=== PATIENT | female | born 1995 | race Caucasian/White ===

== ENCOUNTER 2016-03-06 14:07 | Emergency (ER) | payer OTHER ==
[~2016-03-06] VITALS: Wt 72.5 kg
[~2016-03-06 14:07] MED LIST: ACET-2158 PO; IBUP-1542 PO; PREN-39 PO
[2016-03-06 14:12] VITALS: Wt 72.5 kg
[2016-03-06] MEDS ORDERED: IBUP-1542 PO (16:11)
[2016-03-06] MEDS ORDERED: AMO500 PO (16:11)
[2016-03-06] MEDS ORDERED: D-ME473S18 PO (16:11)
--- NOTE | 2016-03-06 16:15 | ERD ---
ER Documentation Chief Complaint Date/Time DATE: 03/06/16 TIME: 16:13 Chief Complaint COUGH AND SORE THROAT WITH INTERMITTENT FEVERS HPI This 20-year-old female presents with cough and sore throat and intermittent fevers worsening over the last 3 days. She had some mild URI symptoms last week but feels they are worsening. She denies any vomiting, abdominal pain, diarrhea. She has decreased hearing and possible ear pain worse on the left. ROS All systems reviewed and are negative except as per history of present illness. Medications Home Meds Active Scripts Ibuprofen* (Motrin*) 600 Mg Tab, 600 MG PO Q6, #15 TAB Prov:DANNY JOSEPH MD 03/06/16 Dextromethorphan Hb-Promethazine Hcl (Promethazine DM Syrup) 473 Ml Syrup, 5 ML PO Q6H Y for COUGH, #4 OZ Prov:DANNY JOSEPH MD 03/06/16 Amoxicillin* (Amoxicillin*) 500 Mg Cap, 500 MG PO TID for 10 Days, CAP Prov:DANYN JOSEPH MD 03/06/16 Ibuprofen* (Motrin*) 600 Mg Tab, 600 MG PO Q6, #30 TAB 7 Refills Prov:SALTY ALVARADO MD 12/05/13 Acetaminophen (TYLENOL 325 MG TAB) 325 Mg Tab, 650 MG PO Q4H Y for PAIN LEVEL 1- 5 for 7 Days, TAB Prov:SALTY ALVARADO MD 12/05/13 Reported Medications Vits W-Ca,Fe,Fa(<1MG) ( Vitamins) 1 Tab Tablet, 1 TAB PO DAILY for 7 Days 11/29/13 Allergies Allergies: Coded Allergies: No Known Allergy (Unverified , 09/16/13) PMhx/Soc History of Surgery: No Anesthesia Reaction: No Hx Neurological Disorder: No Hx Respiratory Disorders: No Hx Cardiac Disorders: No Hx Psychiatric Problems: No Hx Miscellaneous Medical Probl: Yes (FT) Hx Alcohol Use: No Hx Substance Use: No Hx Tobacco Use: No Physical Exam Vitals Vital Signs Date Time Temp Pulse Resp B/P Pulse Ox O2 Delivery O2 Flow Rate FiO2 03/06/16 14:12 100.6 126 24 120/84 98 Physical Exam Const: [] Alert, ahz-vip-qcummsahd. Head: Atraumatic Eyes: Normal Conjunctiva ENT: Normal External Ears, Nose and Mouth. Left TM is red with decreased light reflex. There is some erythema in the posterior oropharynx. 3+ tonsils. Airways patent and uvula midline. Neck: Full range of motion..~ No meningismus. Resp: Clear to auscultation bilaterally Cardio: Regular rate and rhythm, no murmurs Abd: Soft, non tender, non distended. Normal bowel sounds Skin: No petechiae or rashes Back: No midline or flank tenderness Ext: No cyanosis, or edema Neur: Awake and alert Psych: Normal Mood and Affect Procedures/MDM Patient presents with URI symptoms and signs of otitis media. She will treated with amoxicillin, promethazine and ibuprofen. The patient was stable with no new complaints during the ER course. Clinically, there is no current evidence to suggest meningitis, sepsis, acute abdomen, pneumonia, acute coronary syndrome , pulmonary embolism, or any other emergent condition appearing to require further evaluation or hospitalization. The patient should certainly return for any new or worsening symptoms per the aftercare instructions. They should otherwise follow-up with her primary care doctor for reevaluation this week. Departure Diagnosis: Primary Impression: URI, acute Condition: Stable Patient Instructions: Fever Control (Adult), Otitis Media, Abx Tx (Adult) Additional Instructions: Recheck for new or worsening symptoms with primary care doctor. DANNY JOSEPH MD Mar 06, 2016 16:14
== END 2016-03-06 16:28 | disposition home or self-care (01) ==
LOC: FTE 14:07
DX: J06.9 Acute upper respiratory infection, unspecified (principal)
CPT/HCPCS: 99284

== ENCOUNTER 2016-06-18 13:50 | Emergency (ER) | payer OTHER ==
[~2016-06-18] VITALS: Ht 165.1 cm; Wt 82.0 kg
[~2016-06-18 13:50] MED LIST changes: +AMO500 PO; +D-ME473S18 PO
[2016-06-18 13:59] VITALS: Ht 165.1 cm; Wt 82.0 kg
[2016-06-18 14:48] LABS: URINE BLOOD (Dip) POC 1+ (NEGATIVE)
[2016-06-18] MEDS ORDERED: IBUP-1542 PO (15:07)
[2016-06-18] MEDS ORDERED: CEPH-443 PO (15:07)
--- NOTE | 2016-06-18 15:18 | ERD ---
ER Documentation Chief Complaint Date/Time DATE: 06/18/16 TIME: 15:14 Chief Complaint frequent and painful urination started today HPI This 21-year-old female who presents to the emergency department today complaining of urgency with urination. Patient states that she had some burning. Denies any fevers or chills, nausea vomiting, back pain. States that she used Monistat earlier. Denied any yeast or vaginal discharge. States she has 1 sexual partner. Denies any vaginal bleeding. ROS All systems reviewed and are negative except as per history of present illness. Medications Home Meds Active Scripts Ibuprofen* (Motrin*) 600 Mg Tab, 600 MG PO Q6, #30 TAB Prov:EVE HO PA-C 06/18/16 Cephalexin* (Keflex*) 500 Mg Capsule, 500 MG PO QID for 7 Days, CAP Prov:EVE HO PA-C 06/18/16 Ibuprofen* (Motrin*) 600 Mg Tab, 600 MG PO Q6, #15 TAB Prov:DANNY JOSEPH MD 03/06/16 Dextromethorphan Hb-Promethazine Hcl (Promethazine DM Syrup) 473 Ml Syrup, 5 ML PO Q6H Y for COUGH, #4 OZ Prov:DANNY JOSEPH MD 03/06/16 Amoxicillin* (Amoxicillin*) 500 Mg Cap, 500 MG PO TID for 10 Days, CAP Prov:DANNY JOSEPH MD 03/06/16 Ibuprofen* (Motrin*) 600 Mg Tab, 600 MG PO Q6, #30 TAB 7 Refills Prov:SALTY ALVARADO MD 12/05/13 Acetaminophen (TYLENOL 325 MG TAB) 325 Mg Tab, 650 MG PO Q4H Y for PAIN LEVEL 1- 5 for 7 Days, TAB Prov:SALTY ALVARADO MD 12/05/13 Reported Medications Vits W-Ca,Fe,Fa(<1MG) ( Vitamins) 1 Tab Tablet, 1 TAB PO DAILY for 7 Days 11/29/13 Allergies Allergies: Coded Allergies: No Known Allergy (Unverified , 09/16/13) PMhx/Soc History of Surgery: No Anesthesia Reaction: No Hx Neurological Disorder: No Hx Respiratory Disorders: No Hx Cardiac Disorders: No Hx Psychiatric Problems: No Hx Miscellaneous Medical Probl: Yes (FT) Hx Alcohol Use: No Hx Substance Use: No Hx Tobacco Use: No Physical Exam Vitals Vital Signs Date Time Temp Pulse Resp B/P Pulse Ox O2 Delivery O2 Flow Rate FiO2 06/18/16 13:59 98.2 86 18 110/69 96 Physical Exam Const: No acute distress Head: Atraumatic Eyes: Normal Conjunctiva ENT: Normal External Ears, Nose and Mouth. Neck: Full range of motion..~ No meningismus. Resp: Clear to auscultation bilaterally Cardio: Regular rate and rhythm, no murmurs Abd: Soft, non tender, non distended. Normal bowel sounds Skin: No petechiae or rashes Back: No midline or flank tenderness. No CVA tenderness. Neur: Awake and alert Psych: Normal Mood and Affect Results 24 hrs Laboratory Tests Test 06/18/16 14:49 Bedside Urine pH (LAB) 5.5 Bedside Urine Protein (LAB) Negative Bedside Urine Glucose (UA) Negative Bedside Urine Ketones (LAB) Negative Bedside Urine Blood 1+ Bedside Urine Nitrite (LAB) Negative Bedside Urine Leukocyte Esterase (L 1+ Procedures/MDM This 21-year-old female who presents the emergency department today complaining of pain and urgency with urination. I did obtain a UA and urine test UA shows 1+ leukocyte esterase and 1+ blood. test is negative Patient symptoms at this time is consistent with urinary tract infection. Patient was given a prescription for Keflex and Motrin. Patient is afebrile and otherwise well-appearing. She has no CVA tenderness. Low suspicion for pyelonephritis or nephrolithiasis. She has no abdominal pain on physical exam. Low suspicion for acute surgical abdomen. At this time the patient is stable for discharge and outpatient management. Patient should follow up with their PCP in the next 1-2 days. They may return to the emergency department sooner for any persistent or worsening of symptoms. Patient understood and agreed with the plan. Departure Diagnosis: Primary Impression: UTI (urinary tract infection) Urinary tract infection type: site unspecified Hematuria presence: with hematuria Qualified Code: N39.0 - Urinary tract infection with hematuria, site unspecified Condition: Fair Patient Instructions: Understanding Urinary Tract Infections (UTIs) Additional Instructions: Call your primary care doctor TOMORROW for an appointment during the next 1-2 days.See the doctor sooner or return here if your condition worsens before your appointment time. Take antibiotics as prescribed Take Tylenol or Motrin for pain EVE HO PA-C June 18, 2016 15:18
== END 2016-06-18 16:01 | disposition home or self-care (01) ==
LOC: FTE 13:50
DX: N39.0 Urinary tract infection, site not specified (principal)
CPT/HCPCS: 81003; Z7502; 99283

== ENCOUNTER 2017-01-10 04:39 | Emergency (ER) | payer OTHER ==
[~2017-01-10] VITALS: Ht 165.1 cm; Wt 89.5 kg
[~2017-01-10 04:39] MED LIST changes: -AMO500 PO; +AMOX500C2 PO; +CEPH-443 PO
[2017-01-10 04:42] VITALS: Ht 165.1 cm; Wt 89.5 kg
[2017-01-10] MEDS ORDERED: CETI10CA PO (05:14)
[2017-01-10] MEDS ORDERED: IBUP-1542 PO (05:14)
[2017-01-10] MEDS ORDERED: FIORICET PO (05:14)
[2017-01-10] MEDS ORDERED: GUAI120S26 PO (05:14)
[2017-01-10] MEDS ORDERED: IBUPROFEN 600 MG TAB PO ONE (05:30)
[2017-01-10] MEDS ORDERED: ACET/BUTAL/CAFF/CODEINE CAP PO ONE (05:30)
[2017-01-10 05:38] VITALS: PULSE 108
--- NOTE | 2017-01-24 06:01 | ERD ---
ER Documentation Chief Complaint Chief Complaint PT reports LAUREN for 2 days with sensitivity to light HPI 21-year-old female presents here to emergency department for complaints of headache for 2 days. Patient's complaint of headache, throbbing pain, succession scale, not better or worse with anything. Patient also complaining of URI symptoms, runny nose nasal congestion and cough. Patient denies any fever or chills. Patient denies any head injury. Patient denies any nausea or vomiting. ROS All systems reviewed and are negative except as per history of present illness. Medications Home Meds Active Scripts Acetamin/Butalbital/Caffeine* (Fioricet*) [id number] Tab, 1 TAB PO Q6H Y for HEADACHE, #30 TAB Prov:BALA ROBB NP 01/10/17 Ibuprofen* (Motrin*) 600 Mg Tab, 600 MG PO Q6H Y for PAIN AND OR ELEVATED TEMP, #30 TAB Prov:BALA ROBB NP 01/10/17 Cetirizine Hcl* (Zyrtec*) 10 Mg Capsule, 10 MG PO DAILY, #30 TAB.CHEW Prov:BALA ROBB NP 01/10/17 Ciiblvervna-F-Abkbabfaax Hb* (Guaifenesin* DM Syrup) 120 Ml Syrup, 10 ML PO Q4H Y for COUGH, #120 ML Prov:BALA ROBB NP 01/10/17 Ibuprofen* (Motrin*) 600 Mg Tab, 600 MG PO Q6, #30 TAB Prov:EVE HO PA-C 06/18/16 Cephalexin* (Keflex*) 500 Mg Capsule, 500 MG PO QID for 7 Days, CAP Prov:EVE HO-C 06/18/16 Ibuprofen* (Motrin*) 600 Mg Tab, 600 MG PO Q6, #15 TAB Prov:DANNY JOSEPH MD 03/06/16 Dextromethorphan Hb-Promethazine Hcl (Promethazine DM Syrup) 473 Ml Syrup, 5 ML PO Q6H Y for COUGH, #4 OZ Prov:DANNY JOSEPH MD 03/06/16 Amoxicillin* (Amoxicillin*) 500 Mg Cap, 500 MG PO TID for 10 Days, CAP Prov:DANNY JOSEPH MD 03/06/16 Ibuprofen* (Motrin*) 600 Mg Tab, 600 MG PO Q6, #30 TAB 7 Refills Prov:SALTY ALVARADO MD 12/05/13 Acetaminophen (TYLENOL 325 MG TAB) 325 Mg Tab, 650 MG PO Q4H Y for PAIN LEVEL 1- 5 for 7 Days, TAB Prov:SALTY ALVARADO MD 12/05/13 Reported Medications Vits W-Ca,Fe,Fa(<1MG) ( Vitamins) 1 Tab Tablet, 1 TAB PO DAILY for 7 Days 11/29/13 Allergies Allergies: Coded Allergies: No Known Allergy (Unverified , 09/16/13) PMhx/Soc Medical and Surgical Hx: pt denies Surgical Hx History of Surgery: No Anesthesia Reaction: No Hx Neurological Disorder: No Hx Respiratory Disorders: No Hx Cardiac Disorders: No Hx Psychiatric Problems: No Hx Miscellaneous Medical Probl: Yes (FT) Hx Alcohol Use: No Hx Substance Use: No Hx Tobacco Use: No Smoking Status: Never smoker FmHx Family History: No coronary disease, No diabetes, No other Physical Exam Physical Exam GENERAL: The patient is well developed and appropriate for usual state of health, in no apparent distress. HEENT: Atraumatic. Ears: Normal tympanic membrane, no erythema or bulging. No ear canal swelling. No ear discharge. Nose: Erythematous nasal drainage or nasal discharge. Throat: oropharynx erythematous with postnasal drip no tonsillar swelling or tonsillar exudates. No lymphadenopathy. CHEST: Clear to auscultation bilaterally. There are no rales, wheezes or rhonchi. HEART: Regular rate and rhythm. No murmurs, clicks, rubs or gallops. No S3 or S4. ABDOMEN: Soft, nontender and nondistended. Good bowel sounds. No rebound or guarding. No gross peritonitis. No gross organomegaly or masses. No Haynes sign or McBurney point tenderness. BACK: No midline or flank tenderness. EXTREMITIES: Equal pulses bilaterally. There is no peripheral clubbing, cyanosis or edema. No focal swelling or erythema. Full range of motion. Grossly neurovascularly intact. NEURO: Alert and oriented. Cranial nerves 2-12 intact. Motor strength in all 4 extremities with 5/5 strength. Sensation grossly intact. Normal speech and gait. Negative Romberg sign. Negative pronator drift. SKIN: There is no apparent rash or petechia. The skin is warm and dry. HEMATOLOGIC AND LYMPHATIC: There is no evidence of excessive bruising or lymphedema. No gross cervical, axillary, or inguinal lymphadenopathy. Results 24 hrs Current Medications Medications (Trade) Dose Ordered Sig/Sumanth Route PRN Reason Start Time Stop Time Status Last Admin Dose Admin Acetam/Butalbital/ Caffeine/Codeine (Fioricet/ Codeine) 1 cap ONCE ONCE PO 01/10/17 05:30 01/10/17 05:31 DC 01/10/17 05:11 Ibuprofen (Motrin) 600 mg ONCE ONCE PO 01/10/17 05:30 01/10/17 05:31 DC 01/10/17 05:11 Patient was given medication for pain here in emergency department, after treatment, patient verbalized feeling much better. Patient's pain is improved. Procedures/MDM Medical Decision Making: Patient symptoms are most likely consistent with upper respiratory tract infection, which viral in origin. There is low suspicion for Pneumonia at this time since patients lungs sounds are clear, patient O2 saturation is normal and patient doesnt show any respiratory distress. Patients chest xray doesnt show infiltrates or any other cardiopulmonary emergencies at this time. There is low suspicion for other cardiopulmonary emergencies at this time such as CHF, Pulmonary Embolism, Pneumothorax, or any other cardiopulmonary emergencies at this time. There is low suspicion for sepsis. Patient appears well and is hemodynamically stable. Fever is controlled with medicines. Headache most likely is from viral illness , can be also from migraine headache. Disposition: Home. Condition: Stable Prescriptions: Guaifenesin DM Zyrtec ibuprofen Fioricet with codeine Instructions: Patient is advised to take medications as prescribed. Patient is advised to rest. Patient advised to increase fluid intake, do humidifier at home and if possible, do salt water gargles. Patient is advised that if symptoms are worse, shortness of breath, uncontrolled fever, stridor, vomiting, worst signs and symptoms to return to emergency department immediately. Otherwise, patient is advised to follow up with primary doctor in 5-7 days. Disclaimer: Inadvertent spelling and grammatical errors are likely due to EHR/ dictation software use and do not reflect on the overall quality of patient care. Also, please note that the electronic time recorded on this note does not necessarily reflect the actual time of the patient encounter. Departure Diagnosis: Primary Impression: URI (upper respiratory infection) Additional Impression: Headache Condition: Stable Patient Instructions: Self-Care for Headaches Referrals: [facility] BALA ROBB NP Jan 24, 2017 06:01
== END 2017-01-10 05:40 | disposition home or self-care (01) ==
LOC: FTE 04:39
DX: J06.9 Acute upper respiratory infection, unspecified (principal)
CPT/HCPCS: Z7502; Z7610; 99283

== ENCOUNTER 2017-01-10 18:34 | Emergency (ER) | payer OTHER ==
[~2017-01-10] VITALS: Ht 162.6 cm; Wt 83.3 kg
[~2017-01-10 18:34] MED LIST changes: +CETI10CA PO; +FIORICET PO; +GUAI120S26 PO
[2017-01-10 18:42] VITALS: Ht 162.6 cm; Wt 83.3 kg
--- NOTE | 2017-01-10 20:47 | ERD ---
ER Documentation Chief Complaint Chief Complaint headache; was here this AM d/t LAUREN, prescriptions not covered by insurance HPI 21-year-old female presents here in emergency department for complaints of headache, patient was seen earlier today, was given prescriptions, was unable to fill it since patient pharmacy told her that it is not covered. Patient continues to have on and off headache, was also diagnosed to have viral upper respiratory tract infection with this. Patient was given ibuprofen for pain which helped with some of the headache, describes the pain as throbbing pain, intermittent 4/10 scale. Patient denies any nausea or vomiting. Patient denies any dizziness. ROS All systems reviewed and are negative except as per history of present illness. Medications Home Meds Active Scripts Acetamin/Butalbital/Caffeine* (Fioricet*) [id number] Tab, 1 TAB PO Q6H Y for HEADACHE, #30 TAB Prov:BALA ROBB NP 01/10/17 Ibuprofen* (Motrin*) 600 Mg Tab, 600 MG PO Q6H Y for PAIN AND OR ELEVATED TEMP, #30 TAB Prov:BALA ROBB NP 01/10/17 Cetirizine Hcl* (Zyrtec*) 10 Mg Capsule, 10 MG PO DAILY, #30 TAB.CHEW Prov:BALA ROBB NP 01/10/17 Zxrsemllqhv-W-Qwztnxupvz Hb* (Guaifenesin* DM Syrup) 120 Ml Syrup, 10 ML PO Q4H Y for COUGH, #120 ML Prov:BALA ROBB NP 01/10/17 Ibuprofen* (Motrin*) 600 Mg Tab, 600 MG PO Q6, #30 TAB Prov:EVE HO PA-C 06/18/16 Cephalexin* (Keflex*) 500 Mg Capsule, 500 MG PO QID for 7 Days, CAP Prov:EVE HO PA-C 06/18/16 Ibuprofen* (Motrin*) 600 Mg Tab, 600 MG PO Q6, #15 TAB Prov:DANNY JOSEPH MD 03/06/16 Dextromethorphan Hb-Promethazine Hcl (Promethazine DM Syrup) 473 Ml Syrup, 5 ML PO Q6H Y for COUGH, #4 OZ Prov:DANNY JOSEPH MD 03/06/16 Amoxicillin* (Amoxicillin*) 500 Mg Cap, 500 MG PO TID for 10 Days, CAP Prov:DANNY JOSEPH MD 03/06/16 Ibuprofen* (Motrin*) 600 Mg Tab, 600 MG PO Q6, #30 TAB 7 Refills Prov:SALTY ALVARADO MD 12/05/13 Acetaminophen (TYLENOL 325 MG TAB) 325 Mg Tab, 650 MG PO Q4H Y for PAIN LEVEL 1- 5 for 7 Days, TAB Prov:SALYT ALVARADO MD 12/05/13 Reported Medications Vits W-Ca,Fe,Fa(<1MG) ( Vitamins) 1 Tab Tablet, 1 TAB PO DAILY for 7 Days 11/29/13 Allergies Allergies: Coded Allergies: No Known Allergy (Unverified , 09/16/13) PMhx/Soc Medical and Surgical Hx: pt denies Medical Hx, pt denies Surgical Hx History of Surgery: No Anesthesia Reaction: No Hx Neurological Disorder: No Hx Respiratory Disorders: No Hx Cardiac Disorders: No Hx Psychiatric Problems: No Hx Miscellaneous Medical Probl: No Hx Alcohol Use: No Hx Substance Use: No Hx Tobacco Use: No Smoking Status: Never smoker FmHx Family History: No coronary disease, No diabetes, No other Physical Exam Vitals Physical Exam GENERAL: The patient is well developed and appropriate for usual state of health, in no apparent distress. CHEST: Clear to auscultation bilaterally. There are no rales, wheezes or rhonchi. HEART: Regular rate and rhythm. No murmurs, clicks, rubs or gallops. No S3 or S4. ABDOMEN: Soft, nontender and nondistended. Good bowel sounds. No rebound or guarding. No gross peritonitis. No gross organomegaly or masses. No Haynes sign or McBurney point tenderness. BACK: No midline or flank tenderness. EXTREMITIES: Equal pulses bilaterally. There is no peripheral clubbing, cyanosis or edema. No focal swelling or erythema. Full range of motion. Grossly neurovascularly intact. NEURO: Alert and oriented. Cranial nerves 2-12 intact. Motor strength in all 4 extremities with 5/5 strength. Sensation grossly intact. Normal speech and gait. Negative Romberg sign. Negative pronator drift. SKIN: There is no apparent rash or petechia. The skin is warm and dry. HEMATOLOGIC AND LYMPHATIC: There is no evidence of excessive bruising or lymphedema. No gross cervical, axillary, or inguinal lymphadenopathy. Results 24 hrs Current Medications Medications (Trade) Dose Ordered Sig/Sumanth Route PRN Reason Start Time Stop Time Status Last Admin Dose Admin Acetaminophen/ Butalbital/ Caffeine (Fioricet) 1 tab ONCE ONCE PO 01/10/17 21:00 01/10/17 21:00 DC 01/10/17 20:57 Fioricet was given here in emergency department for treatment for headache. Procedures/MDM Medical Decision Making: Patient symptoms are consistent with migraine headache , possible tension headache. There is low suspicion for neurological emergencies at this time since patients neurologic exam is normal. Patient did not have any altered level consciousness, vomiting, changes in balance or memory and did not have any head injury. Upon speaking to the patient's pharmacy, they were saying that the patient's medicine is now covered, patient was advised to fill the prescription and follow with primary care doctor in 2-3 days, see neurologist specialist if headache continues to persist. Dispostion: Home. Stable Disclaimer: Inadvertent spelling and grammatical errors are likely due to EHR/ dictation software use and do not reflect on the overall quality of patient care. Also, please note that the electronic time recorded on this note does not necessarily reflect the actual time of the patient encounter. Departure Diagnosis: Primary Impression: Headache Headache type: unspecified Headache chronicity pattern: acute headache Intractability: not intractable Qualified Code: R51 - Acute nonintractable headache, unspecified headache type Condition: Stable Patient Instructions: Self-Care for Headaches Referrals: YAMINI KHAN (PCP) BALA ROBB NP Jan 10, 2017 20:47
[2017-01-10] MEDS ORDERED: ACET/BUTAL/CAFF TAB PO ONE (21:00)
== END 2017-01-10 21:00 | disposition home or self-care (01) ==
LOC: FTE 18:34
DX: R51 Headache (principal)
CPT/HCPCS: Z7502; Z7610; 99283

== ENCOUNTER 2017-02-07 11:57 | Emergency (ER) | payer OTHER ==
[~2017-02-07] VITALS: Ht 152.4 cm; Wt 80.0 kg
[2017-02-07 12:01] VITALS: Ht 152.4 cm; Wt 80.0 kg
[2017-02-07] MEDS ORDERED: NASO17 NASAL (14:10)
[2017-02-07] MEDS ORDERED: IBUP-1542 PO (14:10)
[2017-02-07] MEDS ORDERED: CETI10CA PO (14:10)
--- NOTE | 2017-02-07 15:29 | ERD ---
ER Documentation Chief Complaint Chief Complaint COUGH SINCE YESTERDAY HPI 21-year-old female comes emergency department with chief complaint of cough, sore throat, congestion since yesterday. The patient reports pleuritic chest pain on the left side that she notes when she coughs or takes a deep breath in or out. She denies fevers, chills, shortness breath, hemoptysis. ROS All systems reviewed and are negative except as per history of present illness. Medications Home Meds Active Scripts Mometasone Furoate* (Nasonex*) 50 Mcg/[place] - 17 Gm [place].pump, 1 SPRAY NASAL BID, #1 BOTTLE IN EACH NOSTRIL Prov:UDAY ALFONSO PA-C 02/07/17 Cetirizine Hcl* (Zyrtec*) 10 Mg Capsule, 10 MG PO DAILY, #10 TAB.CHEW Prov:UDAY ALFONSO PA-C 02/07/17 Ibuprofen* (Motrin*) 600 Mg Tab, 600 MG PO Q6, #30 TAB Prov:UDAY ALFONSO PA-C 02/07/17 Acetamin/Butalbital/Caffeine* (Fioricet*) [id number] Tab, 1 TAB PO Q6H Y for HEADACHE, #30 TAB Prov:BALA ROBB NP 01/10/17 Ibuprofen* (Motrin*) 600 Mg Tab, 600 MG PO Q6H Y for PAIN AND OR ELEVATED TEMP, #30 TAB Prov:BALA ROBB NP 01/10/17 Cetirizine Hcl* (Zyrtec*) 10 Mg Capsule, 10 MG PO DAILY, #30 TAB.CHEW Prov:BALA ROBB NP 01/10/17 Urgqoetnwjk-N-Mojeblruwb Hb* (Guaifenesin* DM Syrup) 120 Ml Syrup, 10 ML PO Q4H Y for COUGH, #120 ML Prov:BALA ROBB NP 01/10/17 Ibuprofen* (Motrin*) 600 Mg Tab, 600 MG PO Q6, #30 TAB Prov:EVE HO PA-C 06/18/16 Cephalexin* (Keflex*) 500 Mg Capsule, 500 MG PO QID for 7 Days, CAP Prov:EVE HO PA-C 06/18/16 Ibuprofen* (Motrin*) 600 Mg Tab, 600 MG PO Q6, #15 TAB Prov:DANNY JOSEPH MD 03/06/16 Dextromethorphan Hb-Promethazine Hcl (Promethazine DM Syrup) 473 Ml Syrup, 5 ML PO Q6H Y for COUGH, #4 OZ Prov:DANNY JOSEPH MD 03/06/16 Amoxicillin* (Amoxicillin*) 500 Mg Cap, 500 MG PO TID for 10 Days, CAP Prov:DANNY JOSEPH MD 03/06/16 Ibuprofen* (Motrin*) 600 Mg Tab, 600 MG PO Q6, #30 TAB 7 Refills Prov:SALTY ALVARADO MD 12/05/13 Acetaminophen (TYLENOL 325 MG TAB) 325 Mg Tab, 650 MG PO Q4H Y for PAIN LEVEL 1- 5 for 7 Days, TAB Prov:SALTY ALVARADO MD 12/05/13 Reported Medications Vits W-Ca,Fe,Fa(<1MG) ( Vitamins) 1 Tab Tablet, 1 TAB PO DAILY for 7 Days 11/29/13 Allergies Allergies: Coded Allergies: No Known Allergy (Unverified , 09/16/13) PMhx/Soc History of Surgery: No Anesthesia Reaction: No Hx Neurological Disorder: No Hx Respiratory Disorders: No Hx Cardiac Disorders: No Hx Psychiatric Problems: No Hx Miscellaneous Medical Probl: No Hx Alcohol Use: No Hx Substance Use: No Hx Tobacco Use: No Physical Exam Vitals Vital Signs Date Time Temp Pulse Resp B/P Pulse Ox O2 Delivery O2 Flow Rate FiO2 02/07/17 12:01 99.7 99 18 132/77 99 Physical Exam General: Well-developed, well-nourished. The patient appears in no acute distress. HEENT: Head is normocephalic, atraumatic. No scleral icterus. TMs are normal, oropharynx is clear. Neck: Supple. Nontender. Lungs: Clear to auscultation. Normal air movement. Reproducible chest wall pain on the left anterior chest and breast tissue. Heart: Regular rate and rhythm. S1 and S2 are normal. No murmurs, gallops, or rubs. Abdomen: Nondistended. Extremities: No clubbing or cyanosis. Moving extremities x 4. No weakness. Neurologic: Alert and oriented 3. No focal deficits. Normal speech and gait. Skin: Normal turgor. No rash or lesions. Procedures/MDM The patient is a 1-year-old female who comes in with an acute upper respiratory infection, presumed viral. Patient's breath sounds are clear, her chest pain is reproducible on palpation is most consistent with costochondritis. Suspicion for pneumothorax, hemopneumothorax, acute coronary syndrome, dissection, pulmonary embolus, pneumonia is low. The patient has a differential diagnosis of a viral upper respiratory infection, bacterial upper respiratory infection, bronchitis, pneumonia, pharyngitis, laryngitis, epiglottitis, croup, pneumonia. Patient has a normal pulmonary examination, clear breath sounds, normal pulse oximetry, with no corrective measures needed at this time. Fluids, rest, antipyretics were encouraged. Departure Diagnosis: Primary Impression: URI (upper respiratory infection) Condition: Good Patient Instructions: Uri, Viral, No Abx (Adult) UDAY ALFONSO PA-C Feb 07, 2017 15:29
== END 2017-02-07 14:40 | disposition home or self-care (01) ==
LOC: FTE 11:57 → E/R 14:40
DX: J06.9 Acute upper respiratory infection, unspecified (principal)
CPT/HCPCS: 99283

== ENCOUNTER 2017-04-22 18:46 | Emergency (ER) | END 2017-04-22 21:07 | disposition home or self-care (01) ==

== ENCOUNTER 2017-07-22 05:15 | Emergency (ER) | END 2017-07-22 06:43 | disposition home or self-care (01) ==

== ENCOUNTER 2017-11-04 22:27 | Emergency (ER) | END 2017-11-05 00:28 | disposition home or self-care (01) ==

== ENCOUNTER 2018-01-06 09:31 | Emergency (ER) | END 2018-01-06 12:06 | disposition home or self-care (01) ==

== ENCOUNTER 2018-09-30 11:14 | Emergency (ER) | payer OTHER ==
[~2018-09-30] VITALS: Ht 165.1 cm; Wt 83.3 kg
[~2018-09-30 11:14] MED LIST changes: +AZIT250T PO; +BENZ-6 PO; +BISM262O23 PO; +CIPR500T4 PO; +D-ME473S2 PO; +DICY10CA40 PO; +ELEC100095 PO; +FLUC150T PO; +GUAI120S25 PO; -GUAI120S26 PO; +LOPE2CAP PO; +MOME17SP14 NASAL; +ONDA4TAB14 PO; +ONDA8TAB14 PO; +PSEU30TA38 PO
[2018-09-30 11:17] VITALS: BP 115/70; PULSE 67; RESP 17; Ht 165.1 cm; Wt 83.3 kg
== END 2018-09-30 14:32 | disposition home or self-care (01) ==
LOC: FTE 11:14
DX: N39.0 Urinary tract infection, site not specified (principal); Z91.040 Latex allergy status
CPT/HCPCS: 36415; 80053; 81001; 81025; 83690; 85025; Z7502; Z7610; 99283

== ENCOUNTER 2018-09-30 20:50 | Emergency (ER) | payer OTHER ==
[~2018-09-30] VITALS: Ht 166.4 cm; Wt 83.1 kg
[2018-09-30 21:03] VITALS: Ht 166.4 cm; Wt 83.1 kg
[2018-09-30] MEDS ORDERED: ONDANSETRON (ODT) 4 MG TAB ODT STA (23:13)
[2018-09-30 23:44] VITALS: BP 124/70; PULSE 94; RESP 16
== END 2018-09-30 23:44 | disposition home or self-care (01) ==
LOC: FTE 20:50
DX: A09 Infectious gastroenteritis and colitis, unspecified (principal); R11.0 Nausea; Z91.040 Latex allergy status
CPT/HCPCS: Z7502; Z7610; 99283